=== PATIENT | male | born 1990 | race Two or more races ===

== ENCOUNTER 2022-05-27 06:40 | Emergency (ER) | payer OTHER ==
[~2022-05-27] VITALS: Ht 177.8 cm; Wt 84.1 kg
[2022-05-27 07:02] LABS: COVID AG,FIA SOURCE NASAL SWAB
[2022-05-27 08:00] LABS: INFLUENZA TYPE A NEGATIVE FOR TYPE A (NEGATIVE); INFLUENZA TYPE B NEGATIVE FOR TYPE B (NEGATIVE)
[2022-05-27 09:36] VITALS: BP 121/83
== END 2022-05-27 10:10 | disposition home or self-care (01) ==
LOC: EMS 06:41
DX: J06.9 Acute upper respiratory infection, unspecified (principal); B97.4 Respiratory syncytial virus as the cause of diseases classified elsewhere; G89.29 Other chronic pain; Z20.822 Contact with and (suspected) exposure to COVID-19
CPT/HCPCS: 71046; 87804; 99284